=== PATIENT | female | born 1965 | race Caucasian/White ===

== ENCOUNTER → 2016-12-17 | Day surgery (SDC) | payer MEDICARE ==
[~2016-12-17] MED LIST: GLUCOPHAGE 500500 MG PO; OMEPRAZOLE20 M1 PO
== END | disposition home or self-care (01) ==
LOC: OR 08:53
PROVIDERS: Internal Medicine Gastroenterology
PROC: 0DBP8ZX Excision of Rectum, Via Natural or Artificial Opening Endoscopic, Diagnostic (ICD-10-PCS; 2016-12-17)
PROC: 0DBE8ZX Excision of Large Intestine, Via Natural or Artificial Opening Endoscopic, Diagnostic (ICD-10-PCS; 2016-12-17)
PROC: 0DB68ZX Excision of Stomach, Via Natural or Artificial Opening Endoscopic, Diagnostic (ICD-10-PCS; principal; 2016-12-17 15:15)
PROC: 0DBB8ZX Excision of Ileum, Via Natural or Artificial Opening Endoscopic, Diagnostic (ICD-10-PCS; 2016-12-17 15:15)
DX: K62.1 Rectal polyp (principal); K29.50 Unspecified chronic gastritis without bleeding; B96.81 Helicobacter pylori [H. pylori] as the cause of diseases classified elsewhere; R59.0 Localized enlarged lymph nodes; K64.0 First degree hemorrhoids; K64.4 Residual hemorrhoidal skin tags; G43.909 Migraine, unspecified, not intractable, without status migrainosus; M19.90 Unspecified osteoarthritis, unspecified site; F41.9 Anxiety disorder, unspecified; F17.210 Nicotine dependence, cigarettes, uncomplicated; Z90.710 Acquired absence of both cervix and uterus; Z90.89 Acquired absence of other organs; Z98.890 Other specified postprocedural states
CPT/HCPCS: 82962; J2250; J7030